=== PATIENT | male | born 1965 | race Caucasian/White ===

== ENCOUNTER 2024-09-03 01:06 | Inpatient (IN) | payer OTHER ==
[2024-09-03 01:35] VITALS: BMI 15.2
[2024-09-03] MEDS ORDERED: POLYETHYLENE GLYCOL (HEALTHYLAX) 3350 17 GM PACKET PO PRN (03:16)
[2024-09-03] MEDS ORDERED: IBUPROFEN 600 MG TABLET (FP) PO PRN (03:16)
[2024-09-03] MEDS ORDERED: BENZONATATE 200 MG CAPSULE PO PRN (03:16)
[2024-09-03] MEDS ORDERED: IBUPROFEN 400 MG TABLET (FP) PO PRN (03:16)
[2024-09-03] MEDS ORDERED: NICOTINE POLACRILEX 2 MG GUM BUC PRN (03:16)
[2024-09-03] MEDS ORDERED: ACETAMINOPHEN 325 MG TABLET (FP) PO PRN (03:16)
[2024-09-03] MEDS ORDERED: NALOXONE (NARCAN) HCL 4 MG/0.1 ML SPRAY NS PRN (03:16)
[2024-09-03] MEDS ORDERED: ONDANSETRON *ODT* 4 MG TABLET SL PRN (03:16)
[2024-09-03] MEDS ORDERED: MAG HYDROX/AL HYDROX/SIMETH 30 ML UNIT-DOSE CUP PO PRN (03:16)
[2024-09-03] MEDS ORDERED: BENZOCAINE/MENTHOL (CHLORASEPTIC ) LOZENGE MM PRN (03:16)
[2024-09-03] MEDS ORDERED: LOPERAMIDE HCL 2 MG CAPSULE PO PRN (03:16)
[2024-09-03] MEDS ORDERED: BISMUTH SUBSALICYLATE 524 MG/30 ML PO PRN (03:16)
[2024-09-03] MEDS ORDERED: MAGNESIUM HYDROX 2400MG/30ML ORAL SUSPENSION 30 ML CUP PO PRN (03:16)
[2024-09-03] MEDS ORDERED: DICYCLOMINE HCL 10 MG CAPSULE PO PRN (03:16)
[2024-09-03] MEDS: methaDONE HCL 10 MG TABLET (FOR DETOX USE ONLY) PO ONE (04:17)
[2024-09-03] MEDS: cloNIDine HCL 0.1 MG TABLET PO PRN (04:32)
[2024-09-03] MEDS: INSULIN ASPART SLIDING SCALE (NOVOLOG) 1 VIAL SQ SCH (07:06)
[2024-09-03] MEDS: PRENATAL VITAMINS W/ FOLIC ACID TABLET (FP) PO SCH (09:10)
[2024-09-03] MEDS: NICOTINE 14 MG/24 HOURS TOPICAL PATCH TD SCH (09:15)
[2024-09-03] MEDS: FLU VACCINE (FLULAVAL) PF 45 MCG/0.5 ML SYRINGE 2024-2025 IM ONE (11:18)
[2024-09-03] MEDS: methaDONE HCL 10 MG TABLET (FOR DETOX USE ONLY) PO PRN (14:50)
[2024-09-03] MEDS: METHOCARBAMOL 500 MG TABLET PO PRN (17:39)
[2024-09-03] MEDS: diazePAM 5 MG TABLET PO PRN (17:39)
[2024-09-03] MEDS: MELATONIN 5 MG TABLETS PO SCH (22:41)
[2024-09-03] MEDS: THIAMINE 100 MG TABLET PO SCH (22:41)
[2024-09-04 11:51] LABS: ABSOLUTE IMMATURE GRANULOCYTES 0.51 x10^3/uL (0.0-0.031); BASOPHILS # 0.03 x10^3/uL (0.01-0.08); EOSINOPHIL % 0.1 % (0.8-7.0); EOSINOPHILS # 0.01 x10^3/uL (0.04-0.54); HEMATOCRIT 41.3 % (40.1-51.0); HEMOGLOBIN 13.2 g/dL (13.7-17.5); MEAN CELL VOLUME 90.6 fl (79.0-92.2); MEAN PLT VOLUME 12.5 fl (9.4-12.4); MONOCYTE # 0.84 x10^3/uL (0.30-0.82); MONOCYTE % 8.4 % (5.3-12.2); PLATELET COUNT 120 x10^3/uL (163-337); RDW 16.9 % (12.2-16.4)
[2024-09-04 11:56] LABS: POTASSIUM 3.9 mmol/L (3.5-5.1)
[2024-09-04 11:57] LABS: CALCIUM 8.6 mg/dL (8.5-10.1)
[2024-09-04 11:58] LABS: ALBUMIN 3.2 g/dl (3.4-5.0); BLOOD UREA NITROGEN 37.5 mg/dL (7-18)
[2024-09-04 12:02] LABS: CREATININE 0.9 mg/dL (0.55-1.3)
[2024-09-04 12:03] LABS: BILIRUBIN,TOTAL 0.6 mg/dL (0.2-1); TOT PROT 7.7 g/dl (6.4-8.2)
[2024-09-04] MEDS: methaDONE HCL 10 MG TABLET (FOR DETOX USE ONLY) PO ONE (13:34)
[2024-09-04] MEDS: SULFAMETHOXAZOLE/TRIMETHOPRIM 800MG/160MG D.S. TABLET PO SCH (17:03)
[2024-09-04] MEDS: ALBUTEROL SO4 2.5/IPRATROPIUM 0.5 INH SOL 3 ML VIAL.NEB. NEB ONE (18:24)
[2024-09-04] MEDS: predniSONE 20 MG TABLET (UD) PO SCH (18:25)
[2024-09-04] MEDS: AMOX TR/POT CLAV 875MG/125MG TABLETS (FP) PO ONE (20:31)
[2024-09-04] MEDS: ALBUTEROL SO4 2.5/IPRATROPIUM 0.5 INH SOL 3 ML VIAL.NEB. NEB PRN (23:44)
[2024-09-05] MEDS: AMOX TR/POT CLAV 875MG/125MG TABLETS (FP) PO SCH (07:49)
[2024-09-05] MEDS: guaiFENesin 600 MG TABLET.ER (FP) PO PRN (09:15)
[2024-09-05] MEDS: methaDONE HCL 10 MG TABLET (FOR DETOX USE ONLY) PO ONE (09:15)
[2024-09-06 08:43] VITALS: RESP 18
[2024-09-06 12:41] VITALS: BP 130/95; PULSE 66; TEMP 97.3
[2024-09-06] MEDS ORDERED: MELATONIN 5 MG TABLETS PO ONE (23:01)
[2024-09-07] MEDS ORDERED: methaDONE HCL 10 MG TABLET (FOR DETOX USE ONLY) PO ONE (10:00)
== END 2024-09-06 13:32 | disposition left against medical advice (07) | DRG 770 ==
LOC: YASAS 01:06 → Y3N 03:31
PROVIDERS: ADMIT Allergy & Immunology; ATTEND Allergy & Immunology
PROC: HZ2ZZZZ Detoxification Services for Substance Abuse Treatment (ICD-10-PCS; principal; 2024-09-03)
DX: F11.23 Opioid dependence with withdrawal (principal); U07.1 COVID-19; J18.9 Pneumonia, unspecified organism; B20 Human immunodeficiency virus [HIV] disease; E11.9 Type 2 diabetes mellitus without complications; N40.0 Benign prostatic hyperplasia without lower urinary tract symptoms; R63.6 Underweight; Z68.1 Body mass index [BMI] 19.9 or less, adult; Z87.891 Personal history of nicotine dependence
CPT/HCPCS: 0241U-QW; 36415; 71045-TC-FY; 80053; 80305; 80307; 82962; 85025; 86359; 86360; 86780; 93005; 93010; 94640; 99284-25